=== PATIENT | male | born 2000 | race Caucasian/White ===

== ENCOUNTER → 2022-02-18 14:21 | Outpatient (CLI) | payer OTHER, SELFPAY ==
--- NOTE | ~2022-02-18 | US_ITS ---
US breast LT limited DATE: 02/18/2022 14:44 INDICATION: Left subareolar tender lump for one month; maternal grandmother had breast cancer. TECHNIQUE: Real-time and color flow imaging of the right breast COMPARISON: None FINDINGS: Minimal subareolar fibroglandular stroma is suggested, suggesting gynecomastia. No suspicio us mass or shadowing or suspicious vascularity is identified. IMPRESSION: BI-RADS Category 2: Benign. Probable minimal gynecomastia If symptoms persist, consider diagnostic mammogram Reviewed, dictated and finalized at Location A. Reviewed, dictated and finalized at location A. NE REPORTER
== END ==
PROVIDERS: PCP Physician Assistant; Visit Provider Physician Assistant
DX: N63.42 Unspecified lump in left breast, subareolar (principal)
CPT/HCPCS: 76642

== ENCOUNTER → 2022-03-25 08:48 | Outpatient (CLI) | payer OTHER, SELFPAY ==
--- NOTE | ~2022-03-25 | MMUS_ITS ---
EXAMINATION: MM diagnostic andreia LT w juancarlos, US breast LT limited HISTORY: Palpable left breast lump with tenderness TECHNIQUE: Additional 3-D tomosynthesis images of the left breast were performed and synthetic 2-D im ages were generated. CAD analysis was submitted and interpreted. High resolution Limited left breast ultrasound was performed. COMPARISON: None BREAST PARENCHYMAL COMPOSITION: Breast composed of scattered areas of fibroglandular density. FINDINGS: MAMMOGRAPHIC FINDINGS: There is bilateral asymmetric gynecomastia, left greater than right. Subareolar breast bud is present without discrete mass. ULTRASOUND: Limited left breast ultrasound: Heterogeneous subareolar echotexture is noted, consistent with breast bud. No discrete mass. There is a similar appearance to the right subareolar location. IMPRESSION: 1. No evidence for malignancy in the left breast. Benign findings. 2. Recommend follow-up clinical management for gynecomastia. BI-RADS Category 2: Benign finding(s). Reviewed, dictated and finalized at location B. ECTIONS REP IMPRESSION: 1. No evidence for malignancy in the left breast. Benign findings. 2. Recommend follow-up clinical management for gynecomastia. BI-RADS Category 2: Benign finding(s).
== END ==
PROVIDERS: PCP Physician Assistant; Visit Provider Physician Assistant
DX: N63.42 Unspecified lump in left breast, subareolar (principal)
CPT/HCPCS: 76642; 77061; 77065; G0279

== ENCOUNTER 2023-07-24 18:30 | Emergency (ER) | payer OTHER, SELFPAY ==
--- NOTE | ~2023-07-24 | XR_ITS ---
EXAMINATION: XR shoulder RT min 2V DATE: 07/24/2023 18:45 INDICATION: Right shoulder injury. Right shoulder pain. TECHNIQUE: 4 views of right shoulder were obtained. COMPARISON: None. FINDINGS: There is a comminuted fracture of right clavicle at the junction of the middle and distal t hirds. The main distal fracture fragment demonstrates overriding. There is mild osteoarthritis of acr omioclavicular joint. IMPRESSION: 1. Comminuted fracture of right clavicle. Reviewed, dictated and finalized at location E.
[2023-07-24 18:46] VITALS: BP 100/67; PULSE 92; RESP 18; TEMP 36.3; O2SAT 98
--- NOTE | 2023-07-25 05:55 | ED.FALL ---
HPI - Fall General Chief Complaint: Fall Stated Complaint: right collarbone injury Time Seen by Provider: 07/24/23 20:22 History of Present Illness HPI Narrative: Patient presents after falling off a skateboard, he is having severe pain to his right collarbone especially with movement of his arm, he did also scraped up his knee and hit his right hip but he is at ambulating without issues. Did hit his head but no loss of consciousness, nausea vomiting. Related Data Allergies Allergy/AdvReac Type Severity Reaction Status Date / Time clavulanic acid Allergy Severe Anaphylactic Verified 07/24/23 20:33 Shock amoxicillin Allergy Unknown Vomiting Verified 07/24/23 20:33 Review of Systems Review of Systems: All systems reviewed & are unremarkable except as noted in HPI and below PMFSH Family History Family History (System 06/05/20 @ 16:04 by Sony Nelson) Mother Family history of thyroid disease Social History Social History (System 06/05/20 @ 16:04 by Sony Nelson) Alcohol intake: never Exam Narrative: EXAMINATION OF ORGAN SYSTEMS/BODY AREAS: Constitutional: Vital signs per nursing GENERAL:[No acute distress, non-toxic appearing.] HEAD: Normal with no signs of head trauma. EYES: EOMI, conjunctiva normal ENT: Hearing grossly intact LUNGS: Nonlabored breathing. HEART: [Regular rate and rhythm] ABD: [Soft], [nontender to palpation] EXT: Deformity R collarbone; pain with movement of right arm otherwise no tenderness or deformities to any other extremity SKIN: Abrasions to right knee NEURO: [Alert and oriented x 3. No gross focal sensory or strength deficits.] PSYCH: Normal affect Course Vital Signs Vital signs: Vital Signs Temperature 97.4 F L 07/24/23 18:46 Pulse Rate 92 07/24/23 18:46 Respiratory Rate 18 07/24/23 18:46 Blood Pressure 100/67 07/24/23 18:46 Pulse Oximetry 98 07/24/23 18:46 Temperature 97.4 F L 07/24/23 18:46 Pulse Rate 92 07/24/23 18:46 Respiratory Rate 18 07/24/23 18:46 Blood Pressure 100/67 07/24/23 18:46 Pulse Oximetry 98 07/24/23 18:46 MDM - Fall MDM Narrative Medical decision making narrative: Patient presents with skateboard fall, hit head, no indication for CT per [place] rules, he is ambulating normally and has no significant tenderness to hips or knees, discussed with family and patient agreed not to get x-rays at this time since low concern for fracture. Shoulder x-ray on my own any pain interpretation does show a fracture of the right clavicle with over writing segment about 3 cm. This discussed with the orthopedic surgeon on-call who recommends sling with follow-up in clinic. Patient is neurovascularly intact, with good radial pulses and perfusion and no numbness or tingling or weakness. Stable for discharge at this time with return precautions. Discharge Plan Discharge Clinical Impression: Clavicle fracture Patient Disposition: Home, Self-Care Condition: Stable Instructions: Antibiotic Form, Clavicle Fracture (ED) Additional Instructions: Keep your arm in the sling and follow-up with the orthopedic surgeon. You can always return to the hospital for any further issues. Follow-up/Referrals: Raymond Napier MD [Physician] - 2 Days Menrina,MOISES Urena [Primary Care Provider] - 2 Days Stand Alone Forms: Work/School Release IP
== END 2023-07-24 20:56 | disposition home or self-care (01) ==
PROVIDERS: Emergency Provider Emergency Medicine; PCP Physician Assistant
DX: S42.021A Displaced fracture of shaft of right clavicle, initial encounter for closed fracture (principal); V00.131A Fall from skateboard, initial encounter; Y93.51 Activity, roller skating (inline) and skateboarding
CPT/HCPCS: 73030; 99284; A4565

== ENCOUNTER 2025-03-04 08:27 | Outpatient (CLI) | payer OTHER, SELFPAY ==
--- NOTE | ~2025-03-04 | US_ITS ---
US abdomen limited INDICATION: Elevated liver enzymes PROCEDURE: Realtime right upper abdominal ultrasound. COMPARISON: No prior studies for comparison. FINDINGS: The pancreas is normal without focal mass or pancreatic ductal dilation. Liver echotexture is normal without focal mass or intrahepatic biliary dilatation. There is normal directional flow in the portal vein. The gallbladder is normal without stones, gallbladder wall thickening or pericholecystic fluid. Common bile duct measures 4 mm. No sonographic Harvey's sign. Portal vein is dilated measuring 1.5 cm, suspicious for portal venous hypertension. IMPRESSION: 1: Mildly dilated portal vein suspicious for portal hypertension. Reviewed, dictated and finalized at location O. OMER ORDERS CLERK
--- OUTSIDE RECORDS SUMMARY | 2025-03-04 08:36 | XMS_ITS | Clinical Summary ---
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
--- OUTSIDE RECORDS SUMMARY | 2025-03-04 08:36 | XMS_ITS | Encounter Summary ---
Author Organization [facility] Address [address] [place] [address] Care Team Providers Care Supervisory Clerk Name Role Phone David Arenas MD Primary Care Provider [phone]- [phone] Encounter Details Date Type Department Care Team (Late st Contact Info) Description 10/07/2019 Lab Requisition [facility] [address] [place] [address] Anam North MD [address] [place] [address] Social History Tobacco Use Types Packs/Day Years Used Date Smoking Tobacco: Never Smokeless Tobacco: Never Alcohol Use Standard Drinks/Week Comments No 0 (1 standard drink = 0.6 oz pur e alcohol) Sex and Gender Information Value Date Recorded Sex Assigned at Not on file Legal Sex Male 5:[address]TER Gender Identity Not on file Sexual Orientation Not on file documented as of this encounter Plan of Treatment Not on file documented as of this encounter Goals Goal Patient Goal Type Associated Problems Recent Progress Patient-Stated? Author Use safety retraint in car Lifestyle On track( 015 10:59 AM CDT) Minda Rinaldi MA documented as of this encounter Procedures Procedure Name Priority Date/Time Associated Diagnosis Comments DERMATOPATHOLOGY Routine 10/04/2019 12:0 0 AM CDT documented in this encounter Results * DERMATOPATHOLOGY (10/04/2019 12:00 AM CDT) Case Report Dermatopathology Report Case: [id number] Authorizing Provider: Anam North MD Collected: 10/04/2019 12:00 AM Ordering Location: [facility] Lab Received: 10/07/2019 02:34 PM Pathologist: Kacey Escobar MD Specimens: A) - Skin, left neck superior B) - Skin, left neck inferior 0 4:35 PM CDT DERMATOPATHOLOGY LABORATORY Final Diagnosis Specimen A. SKIN, left neck superior: COMPOUND MELANOCYTIC NEVUS (D22.4) Specimen B. SKIN, left neck inferior: COMPOUND MELANOCYTIC NEVUS (D22.4) 0 4:35 PM CDT DERMATOPATHOLOGY LABORATORY at 1635 CDT Clinical History A: Nevus. Path # [id number]. B: Nevus. Path # [id number]. 0 4:35 PM CDT DERMATOPATHOLOGY LABORATORY Gross Description Specimen A: Received is one formalin filled container labeled with the patient's name and designated left neck superior. The specimen consists of a shave biopsy measuring [id number]. Jar 0. Specimen B: Received is one formalin filled container labeled with the patient's name and designated left neck inferior. The specimen consists of a shave biopsy measuring [id number], bisected. Jar 0. 0 4:35 PM CDT DERMATOPATHOLOGY LABORATORY Microscopic Description Specimen A. SKIN, left neck superior: There are nests of melanocytes at the dermal-epidermal junction and within the dermis. Specimen B. SKIN, left neck inferior: There are nests of melanocytes at the dermal-epidermal junction and within the dermis. 0 4:35 PM CDT DERMATOPATHOLOGY LABORATORY Disclaimer An external and internal positive and negative controls are appropriate for the histochemical, immunohistochemical and immunofluorescence stain(s) in this case (if any), except where stated explicitly. The performance characteristics of the stain(s) cited in this report were developed and its performance characteristic determined by the Dermatopathology Laboratory at [facility], directed by Dr. Elie Koch. These tests need not be, and therefore are not, approved by the [place] Food and Drug Administration. The tests are used for clinical purposes. Billing Codes Specimen Charges Stain Charges 52565 40137 1 1 0 4:35 PM CDT DERMATOPATHOLOGY LABORATORY Embedded Images 0 4:35 PM CDT DERMATOPATHOLOGY LABORATORY Pathology/Cytology TISSUE SPECIMEN FROM SKIN / Unknown 10/04/2019 10/07/2019 2:34 PM CDT Miscellaneous samples (specimen) TISSUE SPECIMEN FROM SKIN / Unknown 10/04/2019 10/07/2019 2:34 PM CDT us Anam North MD LAB - PATHOLOGY/CYTOLOGY ORDER RADU Final Result DERMATOPATHOLOGY LABORATORY [facility] - Department of Dermatology [facility]/[address] [phone] documented in this encounter Visit Diagnoses Not on filedocumented in this encounter Care Teams Supervisory Clerk Relationship Specialty Start Date End Date David Arenas MD PCP - General Family Medicine 04/15/16 documented as of this encounter
--- OUTSIDE RECORDS SUMMARY | 2025-03-04 08:36 | XMS_ITS | Encounter Summary ---
Author Organization [facility] Address [address] [place] [address] Care Team Providers Care Specialty Foods Cook Name Role Phone Unavailable Primary Care Provider Unavailabl e Encounter Details Date Type Department Care Team (Latest Contact Info) Description 01/14/2002 Outpatient Historical [facility] Vicente Lea MD [address] [place] [phone] HYPERTROPHY TONS AND VERN (Primary Dx) Social History Tobacco Use Types Packs/Day Years Used Date Smoking Tobacco: Never Assessed Sex and Gender Information Value Date Recorded Sex Assigned at Not on file Legal Sex Male 3:28 AM SUPPLIER QUALITY Gender Identity Not on file Sexual Orientation Not on file documented as of this encounter Plan of Treatment Not on file documented as of this encounter Visit Diagnoses Diagnosis Hypertrophy of tonsil with adenoids- Primary documented in this encounter
--- OUTSIDE RECORDS SUMMARY | 2025-03-04 08:36 | XMS_ITS | Clinical Summary ---
Author Organization [facility] Address [address] [place] [address] Care Team Providers Care Evening Or Night Nurse Supervisor Name Role Phone David Arenas MD Primary Care Provider [phone]- [phone] Source Comments [facility],non-owned Affiliates and Associated Physician Practices is amultiple site organization consisting of ambulatory clinics and hospital sitesin [place], [place], [place] and [place]. This disclosure is being madepursuant to the Care Everywhere program and may not contain all information available regarding this patient. Last updated 17.[facility] Allergies Active Allergy Reactions Criticality Noted Date Comments Augmentin 10/05/2012 Medications * Be aware that medications may not be up to date on this document. Alwaysverify current medications with the patient. 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 Overview (03/02/2013): 02/22/13 Valtrex prn Asthma 11/13/2012 Well child visit 05/15/2009 Overview (11/20/2013): 8 yo 05/15/09 10 yo 10/19/10 13 yo 11/07/13 ADD (attention deficit disorder) 05/15/2009 Overview (02/08/2011): 05/15/09 Strattera 25 mg 06/16/09 Strattera 40 mg 09/22/09 Concerta 18mg 11/20/09 concerta 27mg 04/20/10 Concerta 27 mg, RTC 6 mos 10/19/10 Focalin XR 10 mg 02/08/11 off meds Pain of both shoulder joints Post-operative pain Resolved Problems Problem Noted Date Diagnosed Date Resolved Date Otitis externa 11/18/2014 12/30/2014 Overview (11/18/2014): 11/17/14 Left (Ciprodex) Acute serous otitis media 08/07/2014 Overview (08/21/2014): 08/07/14 Phenergan VC Immunizations Immunization Administration Dates Next Due INFLUENZA VACCINE, TRIV. (AF LURIA, FLUZONE TRIVALENT; 6MO+) (IIV3) 12/24/2010,01/25/2010 DTP 10/14/2004, 1,01/21/2000,11/15,1999 HEP B VACCINE, PED/ADOL 07/03/2000,1999, HIB-PRP-OMP 3 DOSE 07/03/2000,1999, 000 Influenza Nasal 01/22/2009 MENINGOCOCCAL ACWY (MCV4P) VAC IM 10/19/2010 MMR 10/14/2004,07/03/2000 POLIO IPV 10/14/2004, 0,1999,08/29 POLIO OPV 01/21/2000,1999 Pneumococcal Pcv13 Conj 07/03/2000,04/07,01/21/2000,11/15 TDAP (7yrs+) 10/19/2010 VARICELLA 12/03/2013,07/03/2000 Family History Medical History Relation Name Comments Cancer Maternal Grandmother Allergies Mother Thyroid Disease Mother Relation Name Status Comments Maternal Grandmother Mother Social History Tobacco Use Types Packs/Day Years Used Date Smoking Tobacco: Never Smokeless Tobacco: Never Alcohol Use Standard Drinks/Week Comments No 0 (1 standard drink = 0.6 oz pur e alcohol) Sex and Gender Information Value Date Recorded Sex Assigned at Not on file Legal Sex Male 5:40 AM STOCK RAISER Gender Identity Not on file Sexual Orientation Not on file Last Filed Vital Signs Vital Sign Reading Time Taken Comments Blood Pressure 120/84 06/25/2019 2:10 PM CDT Pulse 79 06/25/2019 2:10 PM CDT Temperature 36.6 C (97.9 F) 03/21/2019 12:35 PM STOCK RAISER Respiratory Rate 17 03/21/2019 12:35 PM STOCK RAISER Oxygen Saturation 99% 06/25/2019 2:10 PM CDT Inhaled Oxygen Concentration - - Weight 81.6 kg (180 lb) 10/29/2019 11:21 AM CDT Height 182.9 cm (6') 10/29/2019 11:21 AM CDT Body Mass Index 24.41 10/29/2019 11:21 AM CDT Plan of Treatment Health Maintenance Due Date Last Done Comments HIV SCREENING 06/29/2014 HPV VACCINE (1 - Male 3-dose series) 06/29/2014 HEPATITIS C SCREENING 06/25/2017 DTAP/TDAP/TD VACCINES (7 - Td or Tdap) 10/19/2020 10/19/2010, 10/14/2004, 01/23/2001, Additional history exists DEPRESSION SCREENING 04/10/2024 COVID-19 VACCINE (1 - season) 2024 INFLUENZA VACCINE (#1) 2024 1, 01/25/2010, 01/22/2009 ZOSTER VACCINE (1 of 2) 06/29/2049 HEPATITIS B VACCINE Completed 07/03/2000, 1999, 1999 HIB VACCINE Completed 07/03/2000, 11/1999, 1999 PNEUMOCOCCAL VACCINE Completed 07/03/2000, 04/07/2000, 01/21/2000, Additional history exists MENINGOCOCCAL GROUPS A/C/Y/W VACCINE Aged Out 10/19/2010 No longer eligible based on patient's age to complete this topic MENINGOCOCCAL (Group B) VACCINE SHARED DECISION-MAKING Aged Out No longer eligible based on patient's age to complete this topic Goals Goal Patient Goal Type Associated Problems Recent Progress Patient-Stated? Author Use safety retraint in car Lifestyle On track( 015 10:59 AM CDT) Minda Rinaldi MA Medical Devices Implanted Type Area Business Teacher Device Identifier Shelf Expiration Date Model / Serial / Lot Hopkins Sut Gryphon Dynacord Pcryl Brd Implanted:Qty: 2 on 03/21/2019 by Omar Puga MD at [facility] Right: Shoulder [employer] 07/08/2021 [id number] / / Hopkins Sut Gryphon Proknot Bcrl Rapide Implanted:Qty: 4 on 03/21/2019 by Omar Puga MD at [facility] Right: Shoulder [employer] 04/09/2021 [id number] / / Insurance [employer] [facility] [employer] [facility] [place] [address] [employer] * Guarantor: DAVID LIZARRAGA Account Type Relation to Patient Date of Phone Billing Address Personal/Family [address] [place] [address] Care Teams Evening Or Night Nurse Supervisor Relationship Specialty Start Date End Date David Arenas MD PCP - General Family Medicine 04/15/16
--- OUTSIDE RECORDS SUMMARY | 2025-03-04 08:37 | XMS_ITS | Clinical Summary ---
Author Organization [facility] Care Team Providers Care Pick And Shovel Man Name Role Phone Unavailable Primary Care Provider Unavailabl e Social History Tobacco Use Types Packs/Day Years Used Date Smoking Tobacco: Never Assessed Sex and Gender Information Value Date Recorded Sex Assigned at Not on file Legal Sex Male 8:10 AM CDT Gender Identity Not on file Sexual Orientation Not on file Plan of Treatment Health Maintenance Due Date Last Done Comments Hepatitis C Virus (HCV) Screening 1999 TdaP Immunization 1999 Human Papillomavirus (HPV) Immunization (1 - Male 3-dose series) 06/29/2014 Hepatitis B Immunization (1 of 3 - 19+ 3-dose series) 06/29/2018 Influenza Immunization (#1) 2024 SARS-COV-2 Immunization ( - season) 2024 Respiratory Syncytial Virus (RSV) Immunization (Adult) (1 - 1-dose 75+ series) 06/29/2074 Meningococcal Immunization (ACWY) Aged Out No longer eligible based on patient's age to complete this topic Pneumococcal Immunization Combined Aged Out No longer eligible based on patient's age to complete this topic Rotavirus Immunization Aged Out No lo nger eligible based on patient's age to complete this topic
--- OUTSIDE RECORDS SUMMARY | 2025-03-04 08:37 | XMS_ITS | Encounter Summary ---
Author Organization [facility] Address [address] [place] [address] Care Team Providers Care Sap Analyst Name Role Phone David Arenas MD Primary Care Provider +1- [phone] Encounter Details Date Type Department Care Team (Late st Contact Info) Description 03/24/2019 Telephone [facility] [address] [place] [id number] Rasta Trinidad, DO [address] [place] [address] Social History Tobacco Use Types Packs/Day Years Used Date Smoking Tobacco: Never Smokeless Tobacco: Never Alcohol Use Standard Drinks/Week Comments No 0 (1 standard drink = 0.6 oz pur e alcohol) Sex and Gender Information Value Date Recorded Sex Assigned at Not on file Legal Sex Male 5:40 AM RUNNER OUT Gender Identity Not on file Sexual Orientation Not on file documented as of this encounter Miscellaneous Notes * Telephone Encounter - Rasta Trinidad DO - 03/24/2019 10:22 AM RUNNER OUT [facility] Interscalene Catheter Telephone Follow Up Unable to reach patient after multiple unsuccessful attempts at the listed telephone number. The patient was educated on when to present to the ER regarding issues that could evolve from their nerve block & encouraged to call with any additional questions. Rasta Trinidad DO 03/24/19 10:22 AM ER OUT documented in this encounter Plan of Treatment Not on file documented as of this encounter Goals Goal Patient Goal Type Associated Problems Recent Progress Patient-Stated? Author Use safety retraint in car Lifestyle On track( 015 10:59 AM CDT) Minda Rinaldi MA documented as of this encounter Visit Diagnoses Not on filedocumented in this encounter Care Teams Sap Analyst Relationship Specialty Start Date End Date David Arenas MD PCP - General Family Medicine 04/15/16 documented as of this encounter
--- OUTSIDE RECORDS SUMMARY | 2025-03-04 08:37 | XMS_ITS | Encounter Summary ---
Author Organization [facility] Address [address] [place] [address] Care Team Providers Care Ditch Tender Name Role Phone David Arenas MD Primary Care Provider [phone]- [phone] Encounter Details Date Type Department Care Team (Late st Contact Info) Description 03/22/2019 Telephone [facility] ANESTHESIA [address] [place] [address] Pardeep Martínez, DO [address] [facility] [address] [place] [address] Social History Tobacco Use Types Packs/Day Years Used Date Smoking Tobacco: Never Smokeless Tobacco: Never Alcohol Use Standard Drinks/Week Comments No 0 (1 standard drink = 0.6 oz pur e alcohol) Sex and Gender Information Value Date Recorded Sex Assigned at Not on file 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 The patient was educated on when to present to the ER regarding issues that could evolve from their nerve block & encouraged to call with any additional questions. Pardeep Martínez DO 03/22/19 12:15 PM TRAPPER documented in this encounter Plan of Treatment Not on file documented as of this encounter Goals Goal Patient Goal Type Associated Problems Recent Progress Patient-Stated? Author Use safety retraint in car Lifestyle On track( 015 10:59 AM CDT) Minda Rinaldi MA documented as of this encounter Visit Diagnoses Not on filedocumented in this encounter Care Teams Ditch Tender Relationship Specialty Start Date End Date David Arenas MD PCP - General Family Medicine 04/15/16 documented as of this encounter
--- OUTSIDE RECORDS SUMMARY | 2025-03-04 08:37 | XMS_ITS | Encounter Summary ---
Author Organization [facility] Address [address] [place] [address] Care Team Providers Care [employer] Officer Name Role Phone David Arenas MD Primary Care Provider [phone] Encounter Details Date Type Department Care Team (Late st Contact Info) Description 03/23/2019 Telephone [facility] [address] [place] [id number] Rasta Trinidad, DO [address] [place] [address] Social History Tobacco Use Types Packs/Day Years Used Date Smoking Tobacco: Never Smokeless Tobacco: Never Alcohol Use Standard Drinks/Week Comments No 0 (1 standard drink = 0.6 oz pur e alcohol) Sex and Gender Information Value Date Recorded Sex Assigned at Not on file Legal Sex Male 5:40 AM RECEPTIONIST TELEPHONE OPERATOR Gender Identity Not on file Sexual Orientation Not on file documented as of this encounter Miscellaneous Notes * Telephone Encounter - Rasta Trinidad DO - 03/23/2019 10:35 AM RECEPTIONIST TELEPHONE OPERATOR [facility] Interscalene catheter with Q-ball follow up. Unable to reach patient after multiple unsuccessful attempts at the listed telephone number. The patient was educated on when to present to the ER regarding issues that could evolve from their nerve block & encouraged to call with any additional questions. Rasta Trinidad DO 03/23/19 10:37 AM PTIONIST TELEPHONE OPERATOR documented in this encounter Plan of Treatment Not on file documented as of this encounter Goals Goal Patient Goal Type Associated Problems Recent Progress Patient-Stated? Author Use safety retraint in car Lifestyle On track( 015 10:59 AM CDT) Minda Rinaldi MA documented as of this encounter Visit Diagnoses Not on filedocumented in this encounter Care Teams [employer] Officer Relationship Specialty Start Date End Date David Arenas MD PCP - General Family Medicine 04/15/16 documented as of this encounter
== END 2025-03-04 08:28 | disposition home or self-care (01) ==
PROVIDERS: PCP Physician Assistant; Visit Provider Physician Assistant
DX: I81 Portal vein thrombosis (principal); R74.8 Abnormal levels of other serum enzymes
CPT/HCPCS: 76705